=== PATIENT | male | born 1960 | race African-American/Black ===

== ENCOUNTER 2017-11-03 20:58 | Inpatient (IN) | payer OTHER ==
[~2017-11-03] VITALS: Ht 165.1 cm; Wt 45.8 kg
[2017-11-03 21:36] LABS: HEMATOCRIT 25.8 % (38.0-50.0); HEMOGLOBIN 8.2 G/DL (12.5-16.6); MCHC 31.8 G/DL (30.0-36.0); MCV 75.7 FL (86-99); PLATELET COUNT 239 K/uL (156-360); RBC DIS.WIDTH-CV 21.7 % (11.8-14.6); RBC DIS.WIDTH-SD 57.5 % (39-53); RED BLOOD COUNT 3.41 M/uL (4.00-5.50); WHITE BLOOD COUNT 11.1 K/uL (4.1-10.2)
[2017-11-03 21:45] LABS: CHLORIDE 96 mEq/L (99-109); POTASSIUM 3.8 mEq/L (3.7-5.4); SODIUM 135 mEq/L (136-147)
[2017-11-03 21:47] LABS: GLUCOSE 143 mg/dL (70-99)
[2017-11-03 21:51] LABS: CREATININE 1.5 mg/dL (0.6-1.3); UREA NITROGEN (BUN) 26 mg/dL (9-23)
[2017-11-03 21:55] LABS: GFR ESTIMATE (CALCULATED) 51 mL/min/ (58.99-99999)
[2017-11-03 22:53] LABS: ALBUMIN 3.8 g/dL (3.2-4.8)
[2017-11-03 22:57] LABS: TOTAL BILIRUBIN 0.8 mg/dL (0.0-1.0)
[2017-11-03 22:58] LABS: ALKALINE PHOSPHATASE 83 IU/L (3-129)
[2017-11-03 23:01] LABS: ALT (GPT) 7 IU/L (3-49); AST (GOT) 16 IU/L (2-34); DIRECT BILIRUBIN 0.3 mg/dL (0.0-0.3)
[2017-11-03 23:02] LABS: LIPASE 44 U/L (1.0-51.0)
[2017-11-03 23:08] LABS: TROP-I INTERPRETATION NEGATIVE; TROPONIN-I 0.01 ng/mL (0.0-0.30)
[2017-11-04 03:28] LABS: HEMATOCRIT 22.6 % (38.0-50.0); HEMOGLOBIN 7.1 G/DL (12.5-16.6); MCV 76.9 FL (86-99)
[2017-11-04 03:30] VITALS: BP 143/77
[2017-11-04 04:32] LABS: IRON 32 MCG/DL (35-150); TRANSFERRIN (TIBC) 265.7 mg/dL (215-380); TRANSFERRIN SATUR. 12 % (20-55)
[2017-11-04 05:10] LABS: MCH 24.8 PG (29.0-34.0); MCHC 32.3 G/DL (30.0-36.0); PLATELET COUNT 195 K/uL (156-360); RBC DIS.WIDTH-CV 21.7 % (11.8-14.6); RBC DIS.WIDTH-SD 58.3 % (39-53); RED BLOOD COUNT 2.98 M/uL (4.00-5.50); WHITE BLOOD COUNT 8.8 K/uL (4.1-10.2)
[2017-11-04 05:12] LABS: BASOPHIL (%) 0.7 % (0-1); BASOPHIL COUNT 0.1 K/uL (0-0.1); EOSINOPHIL (%) 1.1 % (0-5); EOSINOPHIL COUNT 0.1 K/uL (0-0.3); IMMATURE GRANULOCYTE (%) 1.1 % (0.0-0.7); LYMPHOCYTE COUNT 2.4 K/uL (1.0-2.8); MONOCYTE (%) 13.3 % (3-12); MONOCYTE COUNT 1.2 K/uL (0-0.8); NEUTROPHIL (%) 56.8 % (45-76)
[2017-11-04 05:23] LABS: CHLORIDE 99 MEQ/L (99-109); CREATININE 1.3 MG/DL (0.6-1.3); GFR ESTIMATE (CALCULATED) > 59 mL/min/ (58.99-99999); POTASSIUM 3.7 MEQ/L (3.7-5.4); SODIUM 134 MEQ/L (136-147); UREA NITROGEN (BUN) 22 mg/dL (9-23)
[2017-11-04 05:33] LABS: GLUCOSE 97 mg/dL (70-99)
[2017-11-04 07:49] VITALS: BP 125/58
[2017-11-04 08:37] LABS: THYROTROPIN (TSH) 3.8 MIU/L (0.4-5.5)
[2017-11-04 08:41] LABS: FERRITIN 9 NG/ML (22-322)
[2017-11-04 09:11] LABS: HEMATOCRIT 22.7 % (38.0-50.0); HEMOGLOBIN 7.1 G/DL (12.5-16.6)
[2017-11-04 14:46] LABS: HEMATOCRIT 22.3 % (38.0-50.0); HEMOGLOBIN 7.1 G/DL (12.5-16.6); MCV 77.4 FL (86-99)
[2017-11-04 15:03] VITALS: BP 125/68
[2017-11-04 15:38] VITALS: BP 130/66
[2017-11-04 16:38] VITALS: BP 117/63
[2017-11-04 19:57] VITALS: BP 125/80
[2017-11-05 04:16] VITALS: BP 123/64
[2017-11-05 04:21] LABS: APPEARANCE SL.HAZY ((CLEAR)); BILIRUBIN NEGATIVE; BLOOD SMALL; COLOR YELLOW ((YELLOW)); GLUCOSE (STRIP) NEGATIVE; KETONES 5; LEUKOCYTES LARGE; NITRITE POSITIVE; PROTEIN (STRIP) 30; SPECIFIC GRAVITY 1.012 (1.000-1.030)
[2017-11-05 04:32] LABS: BACTERIA 2+ /HPF; EPITHELIAL CELLS RARE /HPF; MUCUS TRACE /LPF; RED BLOOD CELLS 15-20 /HPF (0-5); UCUL ADDED? YES; WHITE BLOOD CELLS TNTC /HPF (0-5)
[2017-11-05 08:00] VITALS: BP 122/64
[2017-11-05 08:37] LABS: HEMATOCRIT 23.9 % (38.0-50.0); HEMOGLOBIN 7.8 G/DL (12.5-16.6); MCH 25.5 PG (29.0-34.0); MCHC 32.6 G/DL (30.0-36.0); MCV 78.1 FL (86-99); PLATELET COUNT 176 K/uL (156-360); RBC DIS.WIDTH-CV 20.3 % (11.8-14.6); RBC DIS.WIDTH-SD 56.3 % (39-53); RED BLOOD COUNT 3.06 M/uL (4.00-5.50); WHITE BLOOD COUNT 7.5 K/uL (4.1-10.2)
[2017-11-05 08:51] LABS: CHLORIDE 104 mEq/L (99-109); POTASSIUM 3.3 mEq/L (3.7-5.4); SODIUM 137 mEq/L (136-147)
[2017-11-05 08:53] LABS: GLUCOSE 74 mg/dL (70-99)
[2017-11-05 08:57] LABS: CREATININE 1.1 mg/dL (0.6-1.3); GFR ESTIMATE (CALCULATED) > 59 mL/min/ (58.99-99999); UREA NITROGEN (BUN) 13 mg/dL (9-23)
[2017-11-05 11:18] VITALS: BP 132/67
[2017-11-05 12:00] LABS: HIV-1/2 AB/AG COMBO Nonreactive
[2017-11-05 16:52] VITALS: BP 130/70
[2017-11-05 19:48] VITALS: BP 128/65
[2017-11-06 00:20] VITALS: BP 123/58
[2017-11-06 03:48] VITALS: BP 123/61
[2017-11-06 05:42] LABS: BASOPHIL (%) 1.1 % (0-1); BASOPHIL COUNT 0.1 K/uL (0-0.1); EOSINOPHIL (%) 2.1 % (0-5); EOSINOPHIL COUNT 0.2 K/uL (0-0.3); HEMATOCRIT 24.7 % (38.0-50.0); HEMOGLOBIN 7.8 G/DL (12.5-16.6); IMMATURE GRANULOCYTE (%) 0.5 % (0.0-0.7); LYMPHOCYTE (%) 25.6 % (15-42); MCH 25.1 PG (29.0-34.0); MCHC 31.6 G/DL (30.0-36.0); MCV 79.4 FL (86-99); MONOCYTE (%) 12.2 % (3-12); NEUTROPHIL (%) 58.5 % (45-76); NEUTROPHIL COUNT 4.7 K/uL (1.8-6.4); PLATELET COUNT 195 K/uL (156-360); RBC DIS.WIDTH-CV 20.9 % (11.8-14.6); RBC DIS.WIDTH-SD 59.1 % (39-53); RED BLOOD COUNT 3.11 M/uL (4.00-5.50)
[2017-11-06 07:47] VITALS: BP 120/70
[2017-11-06 12:01] VITALS: BP 120/59
[2017-11-06 12:28] LABS: POTASSIUM 3.5 mEq/L (3.7-5.4)
[2017-11-06] MEDS ORDERED: FERROUS SULFAT325 MG PO (16:28)
[2017-11-06] MEDS ORDERED: PANTOPRAZOLE SO40 MG PO (16:32)
== END 2017-11-06 19:02 | disposition home or self-care (01) | DRG 392 ==
LOC: EME 20:58 → 4SOUTH 11-04 02:29 → EDOF 11-04 02:29 → ENRESERV 11-04 02:35 → 4SOUTH 11-04 03:22
PROVIDERS: Hospitalist; Internal Medicine; Physician Assistant
DX: K29.60 Other gastritis without bleeding (principal); K29.80 Duodenitis without bleeding; N17.9 Acute kidney failure, unspecified; E86.0 Dehydration; T83.030A Leakage of cystostomy catheter, initial encounter; Y83.8 Other surgical procedures as the cause of abnormal reaction of the patient, or of later complication, without mention of misadventure at the time of the procedure; N39.0 Urinary tract infection, site not specified; E46 Unspecified protein-calorie malnutrition; N50.89 Other specified disorders of the male genital organs; R64 Cachexia; E87.1 Hypo-osmolality and hyponatremia; D50.9 Iron deficiency anemia, unspecified; N43.3 Hydrocele, unspecified; H54.7 Unspecified visual loss; K44.9 Diaphragmatic hernia without obstruction or gangrene; K64.9 Unspecified hemorrhoids; I69.320 Aphasia following cerebral infarction; Z87.820 Personal history of traumatic brain injury; Z68.1 Body mass index [BMI] 19.9 or less, adult
CPT/HCPCS: 70450; 74176; 76870; 80048; 80076; 81003; 82272; 82607; 82728; 83540; 83690; 83735; 84132; 84443; 84466; 84484; 85014; 85018; 85025; 85027; 86850; 86900; 86901; 86920; 87086; 87389; 88305; 88342 TC; 93005; 99281; 99285; C9113; J0696; J2405; J7030; P9016

== ENCOUNTER 2017-11-13 12:13 | Inpatient (IN) | payer OTHER ==
[~2017-11-13] VITALS: Ht 185.4 cm; Wt 51.4 kg
[~2017-11-13 12:13] MED LIST: FERROUS SULFAT325 MG PO; PANTOPRAZOLE SO40 MG PO
[2017-11-13 13:20] LABS: HEMATOCRIT 24.8 % (38.0-50.0); HEMOGLOBIN 7.6 G/DL (12.5-16.6); MCH 25.5 PG (29.0-34.0); MCHC 30.6 G/DL (30.0-36.0); MCV 83.2 FL (86-99); RBC DIS.WIDTH-CV 23.7 % (11.8-14.6); RBC DIS.WIDTH-SD 71.4 % (39-53); RED BLOOD COUNT 2.98 M/uL (4.00-5.50); WHITE BLOOD COUNT 12.1 K/uL (4.1-10.2)
[2017-11-13 13:21] LABS: PLATELET COUNT 311 K/uL (156-360)
[2017-11-13 13:25] LABS: CHLORIDE 105 mEq/L (99-109); POTASSIUM 4.8 mEq/L (3.7-5.4); SODIUM 135 mEq/L (136-147)
[2017-11-13 13:27] LABS: GLUCOSE 99 mg/dL (70-99)
[2017-11-13 13:31] LABS: CREATININE 1.1 mg/dL (0.6-1.3); GFR ESTIMATE (CALCULATED) > 59 mL/min/ (58.99-99999); UREA NITROGEN (BUN) 57 mg/dL (9-23)
[2017-11-13 14:22] LABS: CREATINE KINASE 90 IU/L (1-294)
[2017-11-13 15:21] LABS: APPEARANCE CLEAR ((CLEAR)); BILIRUBIN NEGATIVE; BLOOD NEGATIVE; COLOR STRAW ((YELLOW)); GLUCOSE (STRIP) NEGATIVE; KETONES NEGATIVE; LEUKOCYTES MODERATE; NITRITE NEGATIVE; PROTEIN (STRIP) NEGATIVE; SPECIFIC GRAVITY 1.013 (1.000-1.030); UROBILINOGEN 0.2 MG/DL (0.2-1.0)
[2017-11-13 15:30] LABS: BACTERIA RARE /HPF; EPITHELIAL CELLS RARE /HPF; MUCUS TRACE /LPF
[2017-11-13] MEDS ORDERED: AMOXICILLIN500 MG PO (16:25)
[2017-11-13] MEDS ORDERED: BIAXIN500 MG PO (16:26)
[2017-11-13] MEDS ORDERED: PROTONIX40 MG PO (16:27)
[2017-11-13] MEDS ORDERED: LATANOPROST2.5 ML BOTH EYES (16:27)
[2017-11-13] MEDS ORDERED: LO-DOSE ASPIRIN81 M2 PO (16:28)
[2017-11-13 18:22] LABS: HEMATOCRIT 20.9 % (38.0-50.0); HEMOGLOBIN 6.5 G/DL (12.5-16.6); MCV 82.6 FL (86-99)
[2017-11-13 18:29] VITALS: BP 125/65
[2017-11-13 20:07] VITALS: BP 124/68
[2017-11-13 23:17] VITALS: BP 113/63
[2017-11-14] VITALS (10 sets, daily range): BP systolic 107–121; BP diastolic 57–68
[2017-11-14 07:21] LABS: HEMOGLOBIN 8.7 G/DL (12.5-16.6); MCH 27.2 PG (29.0-34.0); MCHC 32.2 G/DL (30.0-36.0); MCV 84.4 FL (86-99); RBC DIS.WIDTH-SD 62.8 % (39-53); WHITE BLOOD COUNT 8.1 K/uL (4.1-10.2)
[2017-11-14 07:40] LABS: PLAT.SUFFICIENCY ADEQUATE; PLATELET COUNT 265 K/uL (156-360)
[2017-11-14 07:49] LABS: CHLORIDE 106 MEQ/L (99-109); CREATININE 1.3 MG/DL (0.6-1.3); GFR ESTIMATE (CALCULATED) > 59 mL/min/ (58.99-99999); GLUCOSE 95 mg/dL (70-99); POTASSIUM 4.1 MEQ/L (3.7-5.4); SODIUM 136 MEQ/L (136-147)
[2017-11-14 07:57] LABS: UREA NITROGEN (BUN) 28 mg/dL (9-23)
[2017-11-14 12:09] LABS: HEMATOCRIT 26.6 % (38.0-50.0); HEMOGLOBIN 8.6 G/DL (12.5-16.6)
[2017-11-15 03:45] VITALS: BP 119/66
[2017-11-15 06:15] LABS: HEMATOCRIT 27.4 % (38.0-50.0); HEMOGLOBIN 8.7 G/DL (12.5-16.6); MCH 27.3 PG (29.0-34.0); MCHC 31.8 G/DL (30.0-36.0); MCV 85.9 FL (86-99); PLATELET COUNT 258 K/uL (156-360); RBC DIS.WIDTH-CV 20.3 % (11.8-14.6); RBC DIS.WIDTH-SD 64.3 % (39-53); RED BLOOD COUNT 3.19 M/uL (4.00-5.50); WHITE BLOOD COUNT 6.9 K/uL (4.1-10.2)
[2017-11-15 06:40] LABS: CHLORIDE 110 MEQ/L (99-109); GFR ESTIMATE (CALCULATED) > 59 mL/min/ (58.99-99999); GLUCOSE 89 mg/dL (70-99); SODIUM 140 MEQ/L (136-147); UREA NITROGEN (BUN) 17 mg/dL (9-23)
[2017-11-15 06:52] VITALS: BP 124/73
[2017-11-15 11:10] VITALS: BP 127/73
[2017-11-15] MEDS ORDERED: PROTONIX40 MG PO (14:46)
[2017-11-15] MEDS ORDERED: FEOSOL325 MG PO (14:55)
[2017-11-15 15:11] VITALS: BP 135/75
== END 2017-11-15 18:17 | disposition home or self-care (01) | DRG 812 ==
LOC: EME 12:13 → EDOF 15:27 → 5SOUTH 15:27 → EDBD 15:27 → ENRESERV 15:30 → 5SOUTH 18:17
PROVIDERS: Family Medicine; Hospitalist; Physician Assistant
PROC: 30233N1 Transfusion of Nonautologous Red Blood Cells into Peripheral Vein, Percutaneous Approach (ICD-10-PCS; principal; 2017-11-13)
PROC: 0DJ08ZZ Inspection of Upper Intestinal Tract, Via Natural or Artificial Opening Endoscopic (ICD-10-PCS; 2017-11-15)
DX: D62 Acute posthemorrhagic anemia (principal); K29.70 Gastritis, unspecified, without bleeding; K25.7 Chronic gastric ulcer without hemorrhage or perforation; K29.90 Gastroduodenitis, unspecified, without bleeding; K21.9 Gastro-esophageal reflux disease without esophagitis; B96.81 Helicobacter pylori [H. pylori] as the cause of diseases classified elsewhere; K44.9 Diaphragmatic hernia without obstruction or gangrene; Z86.73 Personal history of transient ischemic attack (TIA), and cerebral infarction without residual deficits
CPT/HCPCS: 80048; 81003; 82550; 85014; 85018; 85027; 86850; 86900; 86901; 86920; 99281; 99285; C9113; J7030; J7040; P9016